=== PATIENT | male | born 1995 | race Caucasian/White ===

== ENCOUNTER 2020-12-15 20:17 | Emergency (ER) | payer SELFPAY ==
[~2020-12-15] VITALS: Ht 172.7 cm; Wt 68.0 kg
[2020-12-15 20:23] VITALS: BP 149/92
--- NOTE | 2020-12-15 21:00 | NUR ---
25 y/o male presented to ED c/o Lt flank pain that radiates to lower abd starting at 1700 today. Pt states he has a hx of kidney stones and this feels the same as that. Abd soft , flat and nontender upon palpation. Active bowel sounds in all quadrants. Pt does c/o of dysuria and retention , states when he does urinate that it is dark colored. Pt resting in bed, locked and in lowest position, HOB elevatd, side rail x1. VSS. No acute distress noted. pmh: kidney stones NKA
[2020-12-15] MEDS ORDERED: NACL 0.9% 1,000 ML IV ONE (21:05)
[2020-12-15] MEDS ORDERED: KETOROLAC 30 MG/ML VIAL IVP ONE (21:05)
[2020-12-15] MEDS ORDERED: ACET-8386 PO (21:37)
[2020-12-15] MEDS ORDERED: IBUP-2213 PO (21:37)
[2020-12-15] MEDS ORDERED: TAMS0.4C96 PO (21:37)
[2020-12-15] MEDS ORDERED: ONDA8TAB87 PO (21:37)
--- NOTE | 2020-12-15 21:55 | NUR ---
IV removed, catheter intact and site benign. Applied folded 4x4 gauze and tape to stop bleeding.
[2020-12-15 22:00] VITALS: BP 149/92
--- NOTE | 2020-12-15 22:00 | NUR ---
Patient discharged with v/s stable. Written and verbal after care instructions given and explained. Patient alert, oriented and verbalized understanding of instructions. Ambulatory with steady gait. All questions addressed prior to discharge. ID band removed. Patient advised to follow up with PMD. Rx of flomax, ibuprofen, norco, & zofran given. Patient educated on indication of medication including possible reaction and side effects. Opportunity to ask questions provided and answered.
== END 2020-12-15 22:00 | disposition home or self-care (01) ==
LOC: MED 20:17
DX: R10.9 Unspecified abdominal pain (principal); R11.2 Nausea with vomiting, unspecified
CPT/HCPCS: 81002; 96361; 96374; 99283; J1885; J7030